=== PATIENT | female | born 1970 | race Caucasian/White ===

== ENCOUNTER 2024-05-06 18:48 | Emergency (ER) | payer MEDICAID, SELFPAY ==
[2024-05-06 19:20] VITALS: BP 106/73; PULSE 73; TEMP 36.7; O2SAT 96; BMI 25.0
[2024-05-06] MEDS: PROMETHAZINE HCL 25 MG/ML VIAL IM (21:56)
[2024-05-06] MEDS: KETOROLAC TROMETHAMINE 30 MG/ML VIAL IM (21:57)
[2024-05-06] MEDS: PREDNISONE 20 MG TABLET 40 MG PO (21:58)
[2024-05-06] MEDS: IPRATROPIUM/ALBUTEROL SULFATE 3 ML AMPUL.NEB IH (22:03)
[2024-05-06 22:04] VITALS: PULSE 58; O2SAT 92
--- NOTE | 2024-05-06 22:05 | ED.GENADUL1 ---
HPI HPI - General Adult General Chief complaint: Upper Respiratory Infection Stated complaint: Upper Respiratory Infection Time Seen by Provider: 05/06/24 21:19 Source: patient Mode of arrival: walk-in History of Present Illness HPI narrative: Patient is a 53-year-old female who is presenting from [facility] facility for 2 days of nausea, vomiting, headache, cough, bronchitis and COPD exacerbation. Patient has been at [facility] for 3 weeks. Patient is there for rehab from [facility]. Patient does have a history of COPD and emphysema. Patient nausea has improved since yesterday. Patient was given a Zofran from [facility] to help somewhat with nausea. Patient is having cough and congestion. Patient does not have your beta inhaler. Patient does have albuterol inhaler at home that she does use. Patient does not wear oxygen during the day or nighttime. No sick contacts that she is aware of. Patient did have COVID testing on Tuesday that was negative. Patient has no joint pain or muscle pain, no other acute complaints. Patient's headache is bilateral frontal sinus. Patient's headache was not the worse headache of her life, not sudden onset, not thunderclap in nature. All systems are negative except as noted/marked. All systems reviewed and otherwise negative. Nurses note and vital signs reviewed and patient is not hypoxic. General: The patient appears well and in no apparent distress. Patient is resting comfortably on cart. Patient is not toxic, lethargic, or listless Skin: Warm, dry, no pallor noted. There is no rash noted. No petechiae, purpura. Head: Normocephalic, atraumatic. Patient has mild tenderness to palpation to bilateral final sinuses, no tenderness to palpation to bilateral maxillary sinuses. Eye: Normal conjunctiva, no drainage, EOMI. PERRL Ears, Nose, Mouth, and Throat: oral mucosa is moist. Nares patent. Mouth without vesicles. Cardiovascular: Regular Rate and Rhythm, no murmur, gallop, rub Respiratory: Patient is in no distress, no accessory muscle use, lungs have faint wheezing bilateral diffusely, no rhonchi's, crackles or rales. Back: non-tender, no CVA tenderness bilaterally to percussion. No CT LS midline pain GI: no midepigastric tenderness palpation, no peritoneal signs, no tenderness to palpation, no masses appreciated. No rebound, guarding, or rigidity noted. No distention Musculoskeletal: Patient has full range of motion of all of the extremities, no motor, sensory, or focal neurological deficits Neurological: A&O x4, normal speech Psychiatric: Cooperative Related Data Previous Rx's ?Medication ?Instructions ?Recorded albuterol sulfate 90 mcg/actuation 2 inh inhalation Q4H PRN shortness 05/06/24 aerosol inhaler of breath or wheezing 7 days #8.5 grams albuterol sulfate 90 mcg/actuation 2 inh inhalation Q4H PRN shortness 05/06/24 aerosol inhaler of breath or wheezing 7 days #8.5 grams benzonatate 100 mg capsule 200 mg (2 x 100 mg) PO TID PRN 05/06/24 cough #20 caps benzonatate 100 mg capsule 200 mg (2 x 100 mg) PO TID PRN 05/06/24 cough #20 caps fvbzxoutiomxotg-uwswtmgkbtbtelu-GC 10 ml PO Q6H PRN cold symptoms 05/06/24 2 mg-30 mg-10 mg/5 mL oral syrup #200 mL (Bromfed DM) cxajbrfbbpvfxya-wixyfogmtbdhocb-EE 10 ml PO Q6H PRN cold symptoms 05/06/24 2 mg-30 mg-10 mg/5 mL oral syrup #200 mL (Bromfed DM) methylprednisolone 4 mg tablets in 4 mg PO DAILY 6 days #21 ea 05/06/24 a dose pack (Medrol (Harpal)) methylprednisolone 4 mg tablets in 4 mg PO DAILY 6 days #21 ea 05/06/24 a dose pack (Medrol (Harpal)) prochlorperazine maleate 10 mg 10 mg PO Q8H PRN nausea and 05/06/24 tablet (Compazine) vomiting 3 days #10 tabs prochlorperazine maleate 10 mg 10 mg PO Q8H PRN nausea and 05/06/24 tablet (Compazine) vomiting 3 days #10 tabs Allergies Allergy/AdvReac Type Severity Reaction Status Date / Time heparin AdvReac Severe Unknown Verified 05/06/24 19:20 Opioid HPI Opioid Management Most Recent Opioid Data: No Data to Display PFSH PFSH Social History Little interest or pleasure in doing things: not at all Feeling down, depressed, or hopeless: not at all Exam Constitutional Vital Signs, click to edit/add: Last Vital Signs Temp 98 F 05/06/24 22:19 Pulse 69 05/06/24 22:19 Resp 16 05/06/24 22:19 BP 122/79 05/06/24 22:19 Pulse Ox 95 05/06/24 22:19 O2 Del Method Room Air 05/06/24 22:19 Course Vital Signs Vital signs: Vital Signs Temperature 98.1 F 05/06/24 19:20 Pulse Rate 73 05/06/24 19:20 Respiratory Rate 18 05/06/24 19:20 Blood Pressure 106/73 05/06/24 19:20 Pulse Oximetry 96 05/06/24 19:20 Oxygen Delivery Method Room Air 05/06/24 19:20 Temperature 98 F 05/06/24 22:19 Pulse Rate 69 05/06/24 22:19 Respiratory Rate 16 05/06/24 22:19 Blood Pressure 122/79 05/06/24 22:19 Pulse Oximetry 95 05/06/24 22:19 Oxygen Delivery Method Room Air 05/06/24 22:19 Medical Decision Making MDM Narrative Medical decision making narrative: Patient was given a DuoNeb breathing treatment. Patient was given injection of Toradol and Phenergan to help with headache and nausea vomiting. Patient states her nausea did improve slightly yesterday with Zofran but still felt nauseous but was able to keep a few Gatorade's and today. Patient was given a refill of her albuterol inhaler. Patient was sent home with prescriptions for Zofran and other medications to help treat bronchitis. Patient was given paper prescriptions because she is currently staying at [facility] facility. Patient will be transferred back to [facility]. Patient will follow-up with medical field representative at [facility] for additional help and care as needed. Patient is very nice, very thankful for help. Patient has been at [facility] for 3 weeks and treatment of fentanyl and opioid abuse/dependence. Discharge Plan Discharge Chief Complaint: Upper Respiratory Infection Clinical Impression: Bronchitis, COPD exacerbation, Medication refill, Headache, Nausea & vomiting Patient Disposition: Home, Self-Care Time of Disposition Decision: 21:43 Condition: Fair Prescriptions / Home Meds: New prochlorperazine maleate [Compazine] 10 mg tablet 10 mg PO Q8H PRN (Reason: nausea and vomiting) 3 Days Qty: 10 0RF benzonatate 100 mg capsule 200 mg PO TID PRN (Reason: cough) Qty: 20 0RF methylprednisolone [Medrol (Harpal)] 4 mg tablets,dose pack 4 mg PO DAILY 6 Days Qty: 21 0RF Rx Instructions: as directed albuterol sulfate 90 mcg/actuation HFA aerosol inhaler 2 inh inhalation Q4H PRN (Reason: shortness of breath or wheezing) 7 Days Qty: 8.5 0RF vocdxzoxwydydyp-pikrraoml-RT [Bromfed DM] 2-30-10 mg/5 mL syrup 10 ml PO Q6H PRN (Reason: cold symptoms) Qty: 200 0RF prochlorperazine maleate [Compazine] 10 mg tablet 10 mg PO Q8H PRN (Reason: nausea and vomiting) 3 Days Qty: 10 0RF benzonatate 100 mg capsule 200 mg PO TID PRN (Reason: cough) Qty: 20 0RF methylprednisolone [Medrol (Harpal)] 4 mg tablets,dose pack 4 mg PO DAILY 6 Days Qty: 21 0RF Rx Instructions: as directed albuterol sulfate 90 mcg/actuation HFA aerosol inhaler 2 inh inhalation Q4H PRN (Reason: shortness of breath or wheezing) 7 Days Qty: 8.5 0RF hocghbplhbbhjoi-hhacxmliz-TG [Bromfed DM] 2-30-10 mg/5 mL syrup 10 ml PO Q6H PRN (Reason: cold symptoms) Qty: 200 0RF Print Language: [place] Instructions: Acute Bronchitis (ED), Emphysema (ED), Acute Headache (ED), How to Use a Nebulizer (ED) Additional Instructions: Increase fluids at home, Gatorade, Powerade, or water. Alternate using DayQuil, NyQuil, and Flonase. Add Mucinex as well as needed. Alternate Tylenol and Motrin every 4 hours to help with fever control, body aches or joint pain. Use qftw-pao-cecublz vitamin C, vitamin D3, and zinc to help fight infection and help with her immune system. Referrals: Physician,Non-Staff, MD [Primary Care Provider] - 1 week Discharge Date/Time: 05/06/24 22:21
[2024-05-06 22:19] VITALS: BP 122/79; PULSE 69; TEMP 36.6; O2SAT 95
== END 2024-05-06 22:21 | disposition home or self-care (01) ==
PROVIDERS: Emergency Provider Emergency Medicine
DX: J43.9 Emphysema, unspecified (principal); R51.9 Headache, unspecified; R11.2 Nausea with vomiting, unspecified; Z76.0 Encounter for issue of repeat prescription
CPT/HCPCS: 71046; 94640; 96372; 99284; J1885; J2550; J7512